=== PATIENT | female | born 1970 | race Caucasian/White ===

== ENCOUNTER 2019-09-06 14:17 | Emergency (ER) | payer OTHER ==
[2019-09-06 14:22] VITALS: BP 146/83
[2019-09-06] MEDS ORDERED: ACETAMINOPHEN 325 MG TABLET PO ONE (14:57)
--- NOTE | 2019-09-06 14:57 | ER Document Report ---
ED Medical Screen (RME) - General Chief Complaint: Leg Pain Stated Complaint: RIGHT LEG PAIN Time Seen by Provider: 09/06/19 14:51 Mode of Arrival: Ambulatory Information source: Patient Notes: Patient presents complaining of right thigh pain swelling and redness. Patient states she does have a history of lymphedema affecting this extremity although her leg is not normally the swollen. Patient denies any fever or recent trauma. I have greeted and performed a rapid initial assessment of this patient. A comprehensive ED assessment and evaluation of the patient, analysis of test results and completion of the medical decision making process will be conducted by additional ED providers. - Related Data Allergies/Adverse Reactions: No Known Allergies Allergy (Verified 09/06/19 14:51) Physical Exam - Vital signs Vitals: Temp Pulse Resp BP Pulse Ox 98.3 F 85 18 146/83 H 97 09/06/19 14:19 09/06/19 14:19 09/06/19 14:19 09/06/19 14:19 09/06/19 14:19 - General General appearance: Appears well, Alert Notes: Tenderness to medial aspect of right thigh, swelling to right thigh Course - Vital Signs Vital signs: Temp Pulse Resp BP Pulse Ox 98.3 F 85 18 146/83 H 97 09/06/19 14:19 09/06/19 14:19 09/06/19 14:19 09/06/19 14:19 09/06/19 14:19
[2019-09-06 15:21] LABS: ABSOLUTE EOSINOPHILS # (AUTO) 0.1 10^3/uL (0.0-0.6); ABSOLUTE LYMPHOCYTES (AUTO) 1.8 10^3/uL (0.5-4.7); ABSOLUTE MONOCYTES (AUTO) 0.6 10^3/uL (0.1-1.4); ABSOLUTE NEUT (AUTO) 3.9 10^3/uL (1.7-8.2); BASOPHILS % (AUTO) 0.5 % (0-2); EOSINOPHILS % (AUTO) 1.4 % (0-6); HEMATOCRIT 41.4 % (36.0-47.0); HEMOGLOBIN 14.1 g/dL (12.0-15.5); LYMPHOCYTES % (AUTO) 28.4 % (13-45); MEAN CORPUSCULAR HEMOGLOBIN 30.8 pg (27.0-33.4); MEAN CORPUSCULAR HGB CONC 34.1 g/dL (32.0-36.0); MEAN CORPUSCULAR VOLUME 90 fl (80-97); MONOCYTES % (AUTO) 9.1 % (3-13); PLATELET COUNT 187 10^3/uL (150-450); RED BLOOD COUNT 4.58 10^6/uL (3.72-5.28); RED CELL DISTRIBUTION WIDTH 12.4 % (11.5-14.0); SEGMENTED NEUTROPHILS % (AUTO) 60.6 % (42-78); TOTAL CELLS COUNTED % (AUTO) 100 %; WHITE BLOOD COUNT 6.5 10^3/uL (4.0-10.5)
[2019-09-06 15:41] LABS: ALBUMIN 4.2 g/dL (3.5-5.0); ALKALINE PHOSPHATASE 75 U/L (38-126); ANION GAP 9 (5-19); ASPARTATE AMINO TRANSFERASE 27 U/L (14-36); BILIRUBIN,DIRECT 0.3 mg/dL (0.0-0.4); BILIRUBIN,TOTAL 1.5 mg/dL (0.2-1.3); BLOOD UREA NITROGEN 17 mg/dL (7-20); CALCIUM 9.7 mg/dL (8.4-10.2); CARBON DIOXIDE 26 mmol/L (22-30); CHLORIDE 106 mmol/L (98-107); GLUCOSE 103 mg/dL (75-110); POTASSIUM 3.8 mmol/L (3.6-5.0); TOTAL PROTEIN 7.3 g/dL (6.3-8.2)
--- NOTE | 2019-09-06 17:29 | RADIOLOGY REPORT (SQ) ---
EXAM DESCRIPTION: VENOUS UNILATERAL LOWER COMPLETED DATE/TIME: 09/06/2019 5:20 pm REASON FOR STUDY: RLE pain, swelling COMPARISON: None. TECHNIQUE: Dynamic and static smyth scale and color images acquired of the right leg venous system. S elected spectral images acquired with additional compression and augmentation maneuvers. The contrala teral common femoral vein and saphenofemoral junction were also imaged. Images stored on PACS. LIMITATIONS: None. FINDINGS: COMMON FEMORAL: Normal phasicity, compression and augmentation. No visualized echogenic ma terial on smyth scale. No defects on color images. FEMORAL: Normal compression and augmentation. No visualized echogenic material on smyth scale. No defe cts on color images. POPLITEAL: Normal compression, augmentation. No visualized echogenic material on smyth scale. No defec ts on color images. CALF VESSELS: Normal compression, augmentation. No visualized echogenic material on smyth scale. No de fects on color images. GSV and SSV: Normal compression, augmentation. No visualized echogenic material on smyth scale. No def ects on color images. ANY DEEP VENOUS INSUFFICIENCY: No. ANY EVIDENCE OF POPLITEAL CYST: No. OTHER: No other significant finding. CONTRALATERAL COMMON FEMORAL VEIN AND SAPHENOFEMORAL JUNCTION: Normal phasicity, compression and augmentation. No visualized echogenic material on smyth scale. No de fects on color images. IMPRESSION: NO EVIDENCE DVT OR SVT IN THE RIGHT LEG. TECHNICAL DOCUMENTATION: JOB ID: [id number] [employer]- All Rights Reserved Reading location - [email or web address]
[2019-09-06] MEDS ORDERED: HYDROCODONE/ACETAMINOPHEN 5-325 MG (6 TAB/ER DISP) PO PRN (17:47)
[2019-09-06] MEDS ORDERED: CEPHALEXIN 500 MG CAPSULE PO ONE (17:47)
--- NOTE | 2019-09-06 17:51 | ER Document Report ---
ED General - General Chief Complaint: Leg Pain Stated Complaint: RIGHT LEG PAIN Time Seen by Provider: 09/06/19 14:51 Primary Care Provider: DANDRE BADILLO AGNP [Primary Care Provider] - Follow up in 3-5 days Mode of Arrival: Ambulatory Information source: Patient Notes: 49-year-old female with history of lymphedema presents emergency department with right thigh leg pain. Reports she woke up with erythema to her right medial leg swelling. She reports she does have lymphedema in this extremity but is not normally has swollen as it is today. She reports she remembers possibly getting bit by something in the bed. No obvious insect bites noted. She reports the leg is extremely tender to touch. Denies fever vomiting diarrhea. Denies trauma. - HPI Onset: Yesterday Onset/Duration: Sudden Quality of pain: Achy Severity: Severe Associated symptoms: None Exacerbated by: Denies Relieved by: Denies Similar symptoms previously: No Recently seen / treated by doctor: No - Related Data Allergies/Adverse Reactions: No Known Allergies Allergy (Verified 09/06/19 14:51) Home Medications: Mobic. Omeprazole Past Medical History - General Information source: Patient - Social History Smoking Status: Never Smoker Frequency of alcohol use: Heavy Drug Abuse: None Occupation: [employer] [place] Lives with: Family Family History: None Patient has suicidal ideation: No Patient has homicidal ideation: No - Medical History Medical History: Other - Lymphedema Surgical Hx: Negative Review of Systems - Review of Systems Notes: Review HPI for review of systems., All other systems negative Physical Exam - Vital signs Vitals: Temp Pulse Resp BP Pulse Ox 98.3 F 85 18 146/83 H 97 09/06/19 14:19 09/06/19 14:19 09/06/19 14:19 09/06/19 14:19 09/06/19 14:19 - General General appearance: Appears well, Alert, Anxious In distress: None - HEENT Head: Normocephalic Eyes: Normal Conjunctiva: Normal Extraocular movements intact: Yes Neck: Normal, Supple. No: Lymphadenopathy - Respiratory Respiratory status: No respiratory distress Breath sounds: Normal - Cardiovascular Rhythm: Regular Heart sounds: Normal auscultation - Abdominal Inspection: Normal Distension: No distension Tenderness: Nontender Adult front & back diagram: 1 - Irregular scattered erythemic rash that goes down the medial right leg from thigh to calf. Area was circled with a surgical marker. No open sores no open wounds no induration no fluctuance. - Back Back: Normal - Extremities General upper extremity: Normal ROM, Normal strength General lower extremity: Normal ROM, Normal strength - Skin Skin Temperature: Warm Skin Moisture: Dry Skin irregularity: Erythema Location of irregularity: Extremities - Right leg Irregularity with: Swelling, Tenderness. negative: Warmth Course - Re-evaluation Re-evalutation: 09/06/19 19:58 49-year-old female with history lymphedema presents today with right leg swollen and rash to the medial right leg. Rash is irregular from upper thigh to the calf. No open sores or wounds. Patient denies being bit by anything although she thinks she may have felt something at Friday night while she was in bed. Denies allergies. Reports the area is very painful. No blisters or pustules. Labs unremarkable Doppler negative for DVT or SVT. Patient will be treated for cellulitis. She was instructed on all results. She was instructed on signs and symptoms of shingles based on her symptoms of acute pain the erythema but no pustules or blisters at this time. She was instructed on the importance of follow-up with primary care provider or return to the emergency department for worsening symptoms. She verbalized understanding to all instructions Dictation of this chart was performed using voice recognition software; therefore, there may be some unintended grammatical errors. Venous Doppler Study 09/06/19 14:55 IMPRESSION: NO EVIDENCE DVT OR SVT IN THE RIGHT LEG. 09/06/19 15:07 09/06/19 15:07 MCV 90 fl (80-97) 09/06/19 15:07 MCH 30.8 pg (27.0-33.4) 09/06/19 15:07 MCHC 34.1 g/dL (32.0-36.0) 09/06/19 15:07 RDW 12.4 % (11.5-14.0) 09/06/19 15:07 Seg Neutrophils % 60.6 % (42-78) 09/06/19 15:07 Chloride 106 mmol/L (98-107) 09/06/19 15:07 Carbon Dioxide 26 mmol/L (22-30) 09/06/19 15:07 Anion Gap 9 (5-19) 09/06/19 15:07 Est GFR ( Amer) > 60 (>60) 09/06/19 15:07 Glucose 103 mg/dL (75-110) 09/06/19 15:07 Calcium 9.7 mg/dL (8.4-10.2) 09/06/19 15:07 Total Bilirubin 1.5 mg/dL (0.2-1.3) H 09/06/19 15:07 AST 27 U/L (14-36) 09/06/19 15:07 Alkaline Phosphatase 75 U/L (38-126) 09/06/19 15:07 Total Protein 7.3 g/dL (6.3-8.2) 09/06/19 15:07 Albumin 4.2 g/dL (3.5-5.0) 09/06/19 15:07 09/06/19 20:06 09/06/19 20:07 - Vital Signs Vital signs: Temp Pulse Resp BP Pulse Ox 98.3 F 85 18 146/83 H 97 09/06/19 14:19 09/06/19 14:19 09/06/19 14:19 09/06/19 14:19 09/06/19 14:19 - Laboratory Result Diagrams: 09/06/19 15:07 09/06/19 15:07 Laboratory results interpreted by me: 09/06/19 15:07 Total Bilirubin 1.5 H - Diagnostic Test Radiology reviewed: Image reviewed, Reports reviewed Discharge - Discharge Clinical Impression: Right leg pain Cellulitis Qualifiers: Site of cellulitis: extremity Site of cellulitis of extremity: lower extremity Laterality: right Qualified Code(s): L03.115 - Cellulitis of right lower limb Condition: Stable Disposition: HOME, SELF-CARE Instructions: Cellulitis ([facility]), Cephalexin ([facility]), Oral Narcotic Medication ([facility]) Additional Instructions: *You have been treated for right leg swelling erythema pain cellulitis Your labs were unremarkable. Your Doppler was negative for a DVT *Take medication as prescribed *Monitor your leg for signs of increasing infection such as increasing pain, redness, swelling, warmth Rest elevate your leg *Follow up with a primary care provider within 5 days *Return to ED for signs of increasing infection, blisters, worsening condition, changes, needs, concerns Monitor your blood pressure. Your blood pressure was elevated today. This may be because you were anxious, in pain or because you need medication. It is important to follow up with your primary care provider for full evaluation. Prescriptions: Cephalexin Monohydrate [Keflex 500 mg Capsule] 500 mg PO QID #20 capsule Forms: Elevated Blood Pressure Referrals: DANDRE BADILLO AGNP [Primary Care Provider] - Follow up in 3-5 days
== END 2019-09-06 18:05 | disposition home or self-care (01) ==
LOC: ER 14:17
DX: L03.115 Cellulitis of right lower limb (principal); M79.651 Pain in right thigh; Z79.1 Long term (current) use of non-steroidal anti-inflammatories (NSAID); Z79.899 Other long term (current) drug therapy
CPT/HCPCS: 36415; 80053; 85025; 93971; 99284